=== PATIENT | female | born 1960 | race Caucasian/White ===

== ENCOUNTER → 2023-07-28 09:26 | Outpatient (REF) | payer BC, SELFPAY | LOC: WDC 09:26 | PROVIDERS: ATTENDING PHYSICIAN Internal Medicine | DX: N63.10 Unspecified lump in the right breast, unspecified quadrant (principal); C50.919 Malignant neoplasm of unspecified site of unspecified female breast; N63.11 Unspecified lump in the right breast, upper outer quadrant | CPT/HCPCS: 76642; 77062; 77066 ==

== ENCOUNTER → 2024-01-30 13:48 | Outpatient (REF) | payer BC, SELFPAY | LOC: WDC 13:48 | PROVIDERS: ATTENDING PHYSICIAN Internal Medicine | DX: R92.8 Other abnormal and inconclusive findings on diagnostic imaging of breast (principal) | CPT/HCPCS: 76642 ==